=== PATIENT | male | born 1945 | race Caucasian/White ===

== ENCOUNTER 2024-08-24 10:56 | Outpatient (REF) | payer MEDICARE, OTHER, SELFPAY ==
--- OUTSIDE RECORDS SUMMARY | 2024-08-24 13:08 | XMS_ITS | Data Portability ---
Author Organization [place] [facility] [employer] Address [address] [place] [address] Care Team Providers Care Graduate Fellow Name Role Phone MENDEZ SHEEHAN Primary Care Provider [phone] MENDEZ SHEEHAN Referring Provider [phone] DELANO RIGGS Primary Care Provider Assessment No assessment recorded. Plan of Treatment Reminders Order Date Submit Date Provider Last Modified By Organization Details Last Modified Time Details Appointments [facility] Site Visit 2024 11:45A M Wilfredo Reza PA-C Not available Not available Not available Lab None recorded. Referral None recorded. Procedures None recorded. Surgeries None recorded. Imaging None recorded. Medication Orders None recorded. Patient TargetsNo targets recorded. Patient Instructions Encounter Date Encounter Id Patient Instructions Last Modified By Organization Details Last Modified Time 07/26/2024 [id number] Medical Decision Making: {{Chart was reviewed prior to the visit.*}} {{PAP data was downloaded and reviewed* sleep study data was downloaded and reviewed w/ patient.}} {{Discussed the above conditions with the patient and answered all questions.* case was discussed with nurse senior branch manager.}} {{Med reconciliation was performed.*}} [email or web address] Not available 07/26/2024 12:29:52 Reason for Referral None Reported. Results Created Date Observation Date Name Description Value Unit Range Abnormal Flag Note LastModifiedBy Organization Detail LastModifiedTime 01/23/20 21 CPAP compl iance * No observ ation record ed. [email or web address] Not Available 01/22 14:33:34 04/30/20 21 CPAP compl iance * No observ ation record ed. Not Available 04/30 12:16:50 05/15/20 24 05/15/2024 CPAP compl iance * No observ ation record ed. Not Available 2023 15:01:22 07/24/20 24 07/24/2024 CPAP compl iance * No observ ation record ed. Not Available 2023 11:21:36 Result Notes None recorded. Problems Name Problem SNOMED Code Status Onset Date Resolution Date Notes Provider Name and Address Organization Details Recorded Time Obstructive sleep apnea of adult 8648987822764 Active 2022 GOLDEN GONZALEZ PA-C [address], [place], [address] , [facility]. 14:35:41 Obstructive sleep apnea syndrome 82679231 Active 2020 Alee steen [place] [facility] [employer] 11:37:46 Problem Notes None recorded. Procedures Surgical History Date Name Laterality Status Provider Name and Address Organization Details Recorded Time 06/01/2019 Hernia Repair completed Alee Gay [place] [facility] [employer] 01/29/2021 11:38:55 Imaging Results Imaging Date Name Status LastModified by Organiz ation Details LastModified Time 01/22/2021 CPAP compliance * completed [email or web address] Information not available 01/22/2021 14:33:34 04/30/2021 CPAP compliance * completed Information not available 04/30/2021 12:16:50 05/15/2024 CPAP compliance * completed [email or web address] Information not available 05/15/2024 15:01:22 07/24/2024 CPAP compliance * completed Information not available 07/24/2024 11:21:36 Procedure Notes None recorded. Medical Equipment None Reported. Allergies No known drug allergies Medications Name Sig Start Date Stop Date Status Note LastModified by Organization Details LastModified Time metformin 500 mg tablet Take 1 tablet twice a day by oral route for 90 days. 07/26 completed Not Available Not Available Not Available prednisone 10 mg tablet 01/29 completed Not Available Not Available Not Available doxycycline hyclate 100 mg capsule TAKE 1 CAPSULE BY MOUTH TWICE DAILY FOR 10 DAYS 07/26 completed Not Available Not Available Not Available lisinopril 20 mg-hydrochl orothiazide 12.5 mg tablet Take 1 tablet every day by oral route for 90 days. active Not Available Not Available No t Available azithromyci n 250 mg tablet TAKE 2 TABLETS BY MOUTH DAVE THEN TAKE 1 TABLET BY MOUTH X 4 DAYS 07/26 completed Not Available Not Available Not Available meloxicam 15 mg tablet 05/13 completed Not Available Not Available Not Available James Chicas 28 gauge active Not Available Not Available Not Available lisinopril 20 mg tablet 05/04 completed Not Available Not Available Not Available prednisone 20 mg tablet 01/29 completed Not Available Not Available Not Available clobetasol 0.05 % topical cream APPLY TOPICALLY TO THE AFFECTED AREA TWICE DAILY active Not Available Not Available No t Available triamcinolo ne acetonide 0.1 % topical cream APPLY THIN LAYER TOPICALLY TO THE AFFECTED AREA TWICE DAILY 05/13 completed Not Available Not Available Not Available amoxicillin 500 mg tablet TAKE 2 TABLETS BY MOUTH EVERY 8 HOURS FOR 10 DAYS 07/26 completed Not Available Not Available Not Available amoxicillin 875 mg tablet 01/29 completed Not Available Not Available Not Available cephalexin 500 mg capsule 01/29 completed Not Available Not Available Not Available pantoprazol e 40 mg tablet,francine yed release 05/04 completed Not Available Not Available Not Available oseltamivir 75 mg capsule 05/04 completed Not Available Not Available Not Available clotrimazol e-betametha sone 1 %-0.05 % topical cream 05/06 completed Not Available Not Available Not Available prednisone 50 mg tablet TAKE 1 TABLET BY MOUTH EVERY DAY FOR 3 DAYS 05/06 completed Not Available Not Available Not Available lisinopril 5 mg tablet 01/29 completed Not Available Not Available Not Available hydrochloro thiazide 25 mg tablet 05/04 completed Not Available Not Available Not Available epinephrine 0.3 mg/0.3 mL injection, auto-inject or active Not Available Not Available Not Available metformin ER 500 mg tablet,exte nded release 24 hr active Not Available Not Available Not Available rosuvastati n 20 mg tablet Take 1 tablet every day by oral route for 90 days. active Not Available Not Available No t Available metoprolol tartrate 25 mg tablet TAKE 1 TABLET BY MOUTH TWICE DAILY active on hold Not Available Not Available Not Available FreeStyle Lite Strips active Not Available Not Available Not Available Suprep Bowel Prep Kit 17.5 gram-3.13 gram-1.6 gram oral solution 05/06 completed Not Available Not Available Not Available Lancets,Ult ra Thin 26 gauge active Not Available Not Available Not Available Trulicity 0.75 mg/0.5 mL subcutaneou s pen injector active Not Available Not Available Not Available vitamin D3 2,000 unit-folic acid 1 mg tablet Take 1 tablet every day by oral route. active Not Available Not Available No t Available Vitals Date Recorded Body height Body mass index (BMI) Body weight Oxygen saturation Oxygen saturation in Arterial blood by Pulse oximetry Heart rate Systolic blood pressure Diastolic blood pressure Provider Name and Address Organization Details Last Updated DateTime 2 187.96 cm 32.4 kg/m2 131072. 28 g 97 % 97 % 57 /min 124 mm[Hg] 78 mm[Hg] Denise Rodriguez [facility] [employer] 2 09:07:57 Date Recorded Body height Body mass index (BMI) Body weight Provider Name and Address Organization Details Last Updated DateTime 05/13/2023 182.88 cm 34 kg/m2 053752.68 g Afsaneh Nelson [facility] [employer] 05/13/2023 14:14:06 Date Recorded Body height Body mass index (BMI) Body weight Provider Name and Address Organization Details Last Updated DateTime 07/26/2024 182.88 cm 32.8 kg/m2 440432.35 g Agnes Chandler [facility] [employer] [facility] [employer] [facility] 07/26/2024 12:16:10 Date Recorded Body height Body mass index (BMI) Body weight Oxygen saturation Oxygen saturation in Arterial blood by Pulse oximetry Heart rate Systolic blood pressure Diastolic blood pressure Provider Name and Address Organization Details Last Updated DateTime 1 218.44 cm 24.5 kg/m2 040897. 83 g 97 % 97 % 50 /min 120 mm[Hg] 70 mm[Hg] Alee Gay [facility] [employer] 1 11:33:49 Date Recorded Body height Body mass index (BMI) Body weight Oxygen saturation Oxygen saturation in Arterial blood by Pulse oximetry Heart rate Systolic blood pressure Diastolic blood pressure Provider Name and Address Organization Details Last Updated DateTime 1 218.44 cm 24.4 kg/m2 688223. 24 g 95 % 95 % 67 /min 114 mm[Hg] 62 mm[Hg] Denise Rodriguez [facility] [employer] [facility] 09:55:28 Social History Question Answer Notes LastModified by Organizat ion Details LastModified Time Tobacco Smoking Status Former Smoker 5 PPD Denise steen [facility] [employer] [facility] [employer] [facility]. 05/06/2022 09:09:46 What Is Your Level Of Alcohol Consumption? Occasional [email or web address] Information not available 05/06/2022 Do You Or Have You Ever Used E-cigarettes Or Vape? Never Used Electronic Cigarettes Information not available 01/29/2021 Have You Been Exposed To Chemicals Or Toxins? No [email or web address] Information not available 05/06/2022 Have You Been Exposed To Heavy Metals? No [email or web address] Information not available 05/06/2022 DNR/DNI No Information no t available 01/29/2021 Full Code No Information no t available 01/29/2021 DNH No Information no t available 01/29/2021 IV Meds/Fluids No Informatio n not available 01/29/2021 Hospice No Information no t available 01/29/2021 IM Meds No Information no t available 01/29/2021 Snf No Information not available 01/29/2021 Assisted Living No Information not available 01/29/2021 Do You Have Any Pets? Yes Cats [email or web address] Information not available 05/06/2022 Are You Passively Exposed To Smoke? No [email or web address] Information not available 05/06/2022 Do You Or Have You Ever Used Smokeless Tobacco? Never Used Smokeless Tobacco Information not available 01/29/2021 How Much Tobacco Do You Smoke? No Information not available 01/29/2021 Sex: Unknown Functional Status None recorded. Mental Status None recorded. Family History Nothing Reported. Medical History Condition Response Sleep Apnea Y Immunizations Vaccine Type Date Status Note Provider Nam e and Address Organization Details Recorded Time Influenza, adjuvanted, quadrivalent, PF 05/07/2022 completed Arti steen [place] - [facility] 05/07/2022 10:41:25 Past Encounters Encounter ID Performer Location Encounter Start Date Encounter Closed Date Diagnosis/Indication Diagnosis SNOMED-CT Code Diagnosis ICD10 Code Diagnosis Note [id number] Aldo Jung MD MAIN OFFICE - [address] [address] 01/29/2021 11:07:24 01/29/2021 11:51:47 Obstructive sleep apnea syndrome 70869681 G47.33 He is compliant and continues to derive benefit. He is due for a new machine and therefore I will make those arrangemen ts. [id number] Aldo Jung MD MAIN OFFICE - [address] [address] 05/04/2021 09:30:31 05/04/2021 10:27:22 Obstructive sleep apnea syndrome 65068782 G47.33 The pt is compliant and continues to derive benefit from CPAP therapy. I am going to continue CPAP at the present level. [id number] Aldo Jung MD MAIN OFFICE - [address] [address] 05/06/2022 08:53:57 05/06/2022 09:34:04 Obstructive sleep apnea syndrome 12379257 G47.33 The pt is compliant and continues to derive benefit from CPAP therapy. I am going to continue CPAP at the present level. Administra tion of influenza vaccine [id number] Z23 [id number] Aldo Jung MD [facility] [address] [place] [address],[address] [place] [address] 05/13/2023 14:08:23 05/13/2023 16:31:12 Obstructive sleep apnea of adult 2047753172 103 G47.33 The patient {{is* is not}} compliant with Pap therapy.. Compliance report was reviewed with the patient. Compliance issues were discussed. Leak {{is acceptable * is elevated but acceptable is elevated and causing problems}} . The AHI {{is acceptable * is elevated but the pt is asymptomat ic is elevated and the pt is symptomati c}}.The patient {{is* is not}} under control. The patient {{is deriving benefit* i s not deriving full benefit st ruggling w/ PAP rx}}..Mach ine francia e as well as regular cleaning were discussed. Plan: {{continue same management .* arrange for new machine.}} [id number] Wilfredo Reza PA-C [facility] [address] [facility] [place] [address] 07/26/2024 12:15:15 07/26/2024 14:33:37 Obstructive sleep apnea of adult 4250209869 103 G47.33 Patient with sleep apnea. He has been using and benefiting from CPAP therapy. He finds equipment to be beneficial and will continue with nightly use. He will continue to clean and update supplies routinely. As he is doing well, we will plan to continue monitoring his progress annually. If any issues arise throughout the year, he has agreed to notify our office. Of note he did start with upper respirator y symptoms 3 days ago and currently has a cough productive of clear to yellow sputum. He tested negative to COVID-19 and is planning to go to the urgent care this afternoon for further evaluation . I have recommende d increased rest and clear fluid hydration. He will be evaluated at the urgent care. Body mass index 30+ - obesity 222940796 Z68.32 He is aware of the link between obesity and sleep apnea. Health Concerns Section Related Observation LastModified by Organization Detai ls LastModified Time None Recorded Concern Status LastModified by Organization Details LastModified Time None Recorded Advance Directives Directive None Recorded Payers Encounter Date Sequence Insurance Name Policy Number Policy Longo Covered Member ID Longo Member ID Guarantor Name 01/29/2021 2 [employer]PS - FOR LIFE (MEDICARE SUPPLEMENT) Ab Mendez [id number] Ab Mendez 01/29/2021 1 [place] Ab Mendez [id number] Ab Mendez 05/04/2021 2 [employer]PS - FOR LIFE (MEDICARE SUPPLEMENT) Ab Anderson Mendez [id number] Ab Anderson Mendez 05/04/2021 1 [place] [facility] G[place]MENT SERVICES Ab Anderson Mendez [id number] Ab Anderson Mendez 05/06/2022 2 WPS - FOR LIFE (MEDICARE SUPPLEMENT) Ab Anderson Mendez [id number] Ab Anderson Mendez 05/06/2022 1 [place] [facility] Ab Anderson Mendez [id number] Ab Anderson Mendez 05/13/2023 2 [employer]PS - FOR LIFE (MEDICARE SUPPLEMENT) Ab Anderson Mendez [id number] Ab Anderson Mendez 05/13/2023 1 [place] [facility] Ab Anderson Mendez [id number] Ab Anderson Mendez 07/26/2024 2 [employer]PS - FOR LIFE (MEDICARE SUPPLEMENT) Ab Anderson Mendez [id number] Ab Anderson Mendez 07/26/2024 1 [place] [facility] Ab Anderson Mendze [id number] Ab Anderson Mendez Notes Date Note Type Note Provider Name and Address Organization Details Recorded Time 01/29/2021 text/html He remains on CP AP. CPAP is set at 9. He is using the device for 4 hours or more 100% of the time. He averages 6 hours 5 minutes. The AHI is 1.3. Average leak is 8.4. MD [address] [place] [address], [address], [facility] 01/29/2021 12:13:38 05/04/2021 text/html Patient is here for follow-up of obstructive sleep apnea. He continues to use CPAP at 9 cm water pressure. He is using the device for 4 hours more 84% of the time. He averages 5 hours 55 minutes. The AHI is 0.6. The average leak is only 12.3. Feek well. No complaints. Scheduled for a stress test because his heart rate drops into the 50's. Aldo Jung MD [address], [address], [facility] 05/04/2021 10:45:07 05/06/2022 text/html The patient is h ere for follow up of obstructive sleep apnea. He remains on CPAP. I did not have any data or him today. He is no longer wireless. He claims to use it nightly. He feels great. Feels rested when he wakes up in the morning. No issues with the machine. Changes departure regularly. He does not take naps during the day. No excessive daytime sleepiness. No drowsy driving. Aldo Jung MD [address], [place], [address], [facility] [employer] 05/06/2022 09:33:53 05/13/2023 text/html 77 yo male being evaluated via telemedicine for F/U KONG. Per his compliance report, he is using his CPAP for more than 4 hours 93% of nights for an average of 7 hours and 32 minutes at a set pressure of 9. AHI is 0.8 and leak is 7.7. Denies fatigue, excessive daytime sleepiness, snoring, waking up gasping for air. [facility] statementType of telemedicine vist:For this visit was conducted via, patient reports video with audio. For billing discussion, patient reports the patient was informed that this visit would be billed to the patient's insurance company and consented to such..Informed consent:For location of provider and patient, patient reports i have informed the patient of my location as my office. and i have ascertained the location of the patient during this office visit.. For patient was informed of, patient reports the choice of an in-person appointment or remote clinic visit and any relevant privacy considerations and that in the event of an emergency they can be seen in person. For patient choice, patient reports after the above discussion, the patient gave informed consent to a telemedicine visit and wished to proceed..Location of services:For provider, patient reports office. For patient, patient reports home.Attendees:For attendees during visit, patient reports provider and patient.Chart review:For pmh; sh; fh; and pertinent labs, patient reports were reviewed by me personally, both prior to the encounter and again with the patient during the visit. Aldo Jung MD [address], [place], [address], [facility] [employer] 05/17/2023 14:35:43 07/26/2024 text/html [facility] PAP F/URepor mahendra bypatient.Sleep Issues:obstructive sleep apnea. History of present illness:Since last seen, the patient feels rested.; Sleep related symptoms have somewhat improved with PAP use.; The patient denies aerophagia and/or abdominal bloating.; The patient denies problems with sleep initiation.; He denies sleep maintenance issues.; He denies ear discomfort while on PAP therapy.; Denies issues with the mask or machine. Pap questions:no skin irritation; no ear pain; no ear pressure; wakes up rested; no headache;nasal congestion; He reports starting with some upper respiratory symptoms on Tuesday. For the past 3 days he is struggled with a cough productive of clear to yellow sputum. No hemoptysis. He does have some nasal congestion but no other symptoms. He tested negative for COVID. Pressure settings:CPAP 9 CWP Compliance/usage:The patient uses the device on 99 % of nights reviewed; and uses the device for > 4 hrs per night 98 % of the time.; Average usage: 7 hours .; He is using the device for 4 hours or more on at 70% of the nights.; AHI is 0.8.[facility] statementReported bypatient.This visit was conducted viavideo with audio Billing discussion:The patient was informed that this visit would be billed to the patient's insurance company and consented to such. Location of provider and patient:I have ascertained the location of the patient during this office visit. Patient was informed ofthe choice of an in-person appointment or remote clinic visit; any relevant privacy considerations and that in the event of an emergency they can be seen in person Patient choice:after the above discussion, the patient gave informed consent to a telemedicine visit and wished to proceed. Provider:home Patient:home Attendees during visit:provider; patient LITTLE Goins [address], [place], [address], [facility] - [facility] 07/26/2024 12:31:59
--- OUTSIDE RECORDS SUMMARY | 2024-08-24 13:09 | XMS_ITS | Continuity of Care Document ---
Author Name [facility] Organization [facility] Care Team Providers Care Script Coordinator Name Role Phone [facility] Unavailable Unavailable Medications Combined list of outpatient medications from Department of Defense and Veterans Affairs facilities.Medications provided include 1) outpatient medications from the last 15 months, and 2) patient-reported medications. Medication Details Route Status Patient Instructions Prescription Expires Prescription Number Last Dispense Date Ordering Provider Order Date Order Qty Source DOXYCYCLINE HYCLATE (doxycyclin e hyclate), 100 MG, CAPSULE, ORAL, [employer], 500 ea. BOTTLE Active [id number] 2023 20 Pharmac y Data Transac tion Service Facilit y EPINEPHRINE (epinephrin e), 0.3MG/0.3, AUTO INJCT, INJECTION, MYLAN SPECIALTY, 2 ea. SYRINGE Active [id number] 4 2023 2 Pharmac y Data Transac tion Service Facilit y Freestyle 28g lancets [100EA] See Rx Instruct ions, # 200 EA, 2 total refill(s ), Hard Stop Complet ed 07/20/2023 200.0 Ambulat ory Pharmac y FREESTYLE LANCETS (lancets), 28 GAUGE, EACH, MISCELL, HAIR DIABETES, 100 ea. PACKET Active [id number] 4 2023 200 Pharmac y Data Transac tion Service Facilit y freestyle lite (glucose) test strip [50] See Rx Instruct ions, # 200 EA, 2 total refill(s ), Hard Stop Complet ed 07/20/2023 200.0 Ambulat ory Pharmac y FREESTYLE LITE TEST STRIP (blood sugar diagnostic) , STRIP, MISCELL HAIR DIABETES, 50 ea. BOX Active [id number] 4 2023 200 Pharmac y Data Transac tion Service Facilit y hydrochloro thiazide-li sinopril 12.5 mg-20 mg tab = 1 tab(s), Oral, Daily, # 90 EA, 0 total refill(s ), Hard Stop Oral (given by mouth) Complet ed 07/20/2023 90.0 Ambulat ory Pharmac y LISINOPRIL- HCTZ (LISINOPRIL /HYDROCHLOR OTHIAZIDE), 20-12.5MG, TABLET, ORAL, LUPIN PHARMACEU, 500 ea. BOTTLE Cancele d [id number] : 2023 0 Pharmac y Data Transac tion Service Facilit y LISINOPRIL- HYDROCHLORO THIAZIDE (lisinopril /hydrochlor othiazide), 20-12.5 MG, TABLET, ORAL, EXELAN PHARMACE, 1000 ea. BOTTLE Active [id number] 4 2023 180 Pharmac y Data Transac tion Service Facilit y metFORMIN 500 mg tablet See Rx Instruct ions, Oral, # 180 EA, 0 total refill(s ), Hard Stop Oral (given by mouth) Complet ed 10/06/2023 180.0 Ambulat ory Pharmac y METFORMIN HCL ER (metformin HCl), 500 MG, TAB ER 24H, ORAL, AVKARE, 90 ea. BOTTLE Active [id number] 4 2023 180 Pharmac y Data Transac tion Service Facilit y one touch ultra soft lancet See Rx Instruct ions, # 200 EA, 2 total refill(s ), Hard Stop Discont inued 10/06/2022 200.0 Ambulat ory Pharmac y rosuvastati n 20 mg tablet 20 mg, Oral, Daily, # 90 EA, 0 total refill(s ), Hard Stop Oral (given by mouth) Complet ed 07/20/2023 90.0 Ambulat ory Pharmac y ROSUVASTATI N CALCIUM (rosuvastat in calcium), 20 MG, TABLET, ORAL, [employer] 90 ea. BOTTLE Active [id number] 4 2023 90 Pharmac y Data Transac tion Service Facilit y ROSUVASTATI N CALCIUM (rosuvastat in calcium), 20 MG, TABLET, ORAL, [employer] 90 ea. BOTTLE Cancele d [id number] : 2023 0 Pharmac y Data Transac tion Service Facilit y ROSUVASTATI N CALCIUM (rosuvastat in calcium), 20 MG, TABLET, ORAL, [employer] 90 ea. BOTTLE Active [id number] 4 2023 90 Pharmac y Data Transac tion Service Facilit y TRULICITY (DULAGLUTID E), 0.75MG/0.5, PEN INJCTR, SUB-Q, [employer] 0.5 ml SYRINGE Active [id number] 4 2023 6 Pharmac y Data Transac tion Service Facilit y TRULICITY (DULAGLUTID E), 0.75MG/0.5, PEN INJCTR, SUB-Q, [employer] 0.5 ml SYRINGE Cancele d [id number] : 2023 0 Pharmac y Data Transac tion Service Facilit y TRULICITY (DULAGLUTID E), 0.75MG/0.5, PEN INJCTR, SUB-Q, [employer] 0.5 ml SYRINGE Active [id number] 4 2023 6 Pharmac y Data Transac tion Service Facilit y TRULICITY (DULAGLUTID E), 0.75MG/0.5, PEN INJCTR, SUB-Q, [employer] 0.5 ml SYRINGE Active [id number] 3 2022 6 Pharmac y Data Transac tion Service Facilit y Immunizations Combined list of available immunizations from the Department of Defense and Veterans Affairs facilities. Immunization Series Date Given Administered By Site Reaction Lot Number CVX Code Drug Appliance Technician Status Comments Source zoster vaccine live 2012 121 [employer] complet ed zoster vaccine live 10/11/12 Given Ambulat ory Pharmac y zoster vaccine live 2012 121 [employer] complet ed zoster vaccine live 10/11/12 Given Ambulat ory Pharmac y zoster vaccine, live 1 2012 Unknown, Provider 121 [employer]ck (MSD) complet ed zoster vaccine, live DoD Vital Signs Combined list of inpatient and outpatient Vital Signs from Department of Defense and Veterans Affairs, ranging from 12 months to all on record, depending upon the facility. Vital Sign Value Date Comments Source No data available for this section Ambulatory Pharmacy Procedures Combined list of: 1) Procedures from Department of Veterans Affairs facilities going back up to thelast 18 months, not all [place] non-surgical procedures are included; 2) All procedures from the Department of Defense facilities. Procedure Procedure Type Code Date Perfomer Comments Sourc e No data available for this section Ambulatory P harmacy Social History Combined list of available smoking, tobacco, and other social history from Department of Defense and Veterans Affairs facilities. Social History Type Response Date Comment Sourc e This section is an empty social history section. DoD Assessment and Plan Combined list of future care activities from Department of Defense and Veterans Affairs facilities (e.g., assessment and plan notes, appointments, orders, and referrals). Additional future care activities may be listed in the Plan of Care section. Result Assessment and Plan Date Source Assessment and Plan No data available for this section 08/24/2024 Ambulatory Pharmacy Functional Status Combined list of recent functional and cognitive assessments recorded at [facility] of Defense and [facility] [place] Functional [place] Measurement (FIM) Scale: 1 = Total Assistance (Subject = 0% +), 2 = Maximal Assistance (Subject = 25% +), 3 = Moderate Assistance (Subject = 50% +), 4 = Minimal Assistance (Subject = 75% +), 5 = Supervision, 6 = Modified [place] (Device), 7 = Complete [place] (Timely, Safely). Assessment Date/Time Source Assessment Type Assessment Skill Assessment Score Assessment Details No data available for this section
--- OUTSIDE RECORDS SUMMARY | 2024-08-24 13:09 | XMS_ITS | Continuity of Care Document ---
Author Organization [place] - [facility] [place]([place]) Address [address] [place] [address] Care Team Providers Care Bridge Painter Helper Name Role Phone MENDEZ SHEEHAN Primary Care Provider MENDEZ SHEEHAN Referring Provider DELANO RIGGS Primary Care Provider Assessment No [...] By Organization Details Last Modified Time 07/26/2024 [id number] Medical Decision Making: {{Chart was reviewed prior to the visit.*}} {{PAP data was downloaded and reviewed* sleep study data was downloaded and reviewed w/ patient.}} {{Discussed the above conditions with the patient and answered all questions.* case was discussed with nurse manager development.}} {{Med reconciliation was performed.*}} [email or web address] Not available 07/26/2024 12:29:52 Reason for Referral None Reported. Results Created Date Observation Date Name Description Value Unit Range Abnormal Flag Note LastModifiedBy Organization Detail LastModifiedTime 07/24/2007/24/2024 CPAP compl iance * No observ ation record ed. [email or web address] Not Available 2023 11:21:36 Result Notes None recorded. Problems Name Problem SNOMED Code Status Onset Date Resolution Date Notes Provider Name and Address Organization Details Recorded Time Obstructive sleep apnea of adult 8172643702025 Active 2022 GOLDEN GONZALEZ PA-C [address] , [place], [address] , [facility] - [facility] [employer]. 14:35:41 Obstructive sleep apnea syndrome 79366383 Active 2020 Alee Gay [facility] [employer]. 11:37:46 Problem Notes None recorded. Procedures Surgical History Date Name Laterality Status Provider Name and Address Organization Details Recorded Time 06/01/2019 Hernia Repair completed Alee Gay [place] - [employer]. 01/29/2021 11:38:55 Imaging Results None recorded. Procedure Notes None recorded. Medical Equipment None [...] completed Not Available Not Available Not Available FreeStyle Lancets 28 gauge active Not Available Not Available [...] Updated DateTime 07/26/2024 182.88 cm 32.8 kg/m2 721170.35 g Agnes Chandler [place] - [facility] 07/26/2024 12:16:10 Social History Question Answer Notes LastModified by Organizat ion Details LastModified Time Tobacco Smoking Status Former Smoker 5 PPD Denise Rodriguez null, [place] - [facility] [employer] 05/06/2022 09:09:46 What Is Your Level Of Alcohol Consumption? Occasional [email or web address] Information not available 05/06/2022 Do You Or Have You Ever Used E-cigarettes Or Vape? Never Used Electronic Cigarettes Information not available 01/29/2021 Have You Been Exposed To Chemicals Or Toxins? No [email or web address] Information not available 05/06/2022 Have You Been Exposed To Heavy Metals? No [email or web address] Information not available 05/06/2022 DNR/DNI No Information no t available 01/29/2021 Full Code No Information no t available 01/29/2021 DNH No Information no t available 01/29/2021 IV Meds/Fluids No Informatio n not available 01/29/2021 Hospice No Information no t available 01/29/2021 IM Meds No Information no t available 01/29/2021 Long Term No Information not available 01/29/2021 Assisted Living No Information not available 01/29/2021 Do You Have Any Pets? Yes Cats [email or web address] Information not available 05/06/2022 Are You Passively Exposed To Smoke? No [email or web address] Information not available 05/06/2022 Do You Or [...] completed Arti steen [place] - [facility] [employer] 05/07/2022 10:41:25 Past Encounters Encounter ID Performer Location Encounter Start Date Encounter Closed Date Diagnosis/Indication Diagnosis SNOMED-CT Code Diagnosis ICD10 Code Diagnosis Note [id number] Wilfredo Reza PA-C [facility] [address] [place] [address] 07/26/2024 12:15:15 07/26/2024 14:33:37 Obstructive sleep apnea of adult 9002947665 103 G47.33 Patient with sleep apnea. He [...] care. Body mass index 30+ - obesity 042532678 Z68.32 He is aware of the link between obesity and sleep apnea. Health Concerns Section Related Observation LastModified by Organization Detai ls LastModified Time None Recorded Concern Status LastModified by Organization Details LastModified Time None Recorded Payers Encounter Date Sequence Insurance Name Policy Number Policy Longo Covered Member ID Longo Member ID Guarantor Name 07/26/2024 2 [employer] - FOR LIFE (MEDICARE SUPPLEMENT) Ab Mendez [id number] Ab Mendez 07/26/2024 1 MEDICARE B-[place]: [facility] [employer] Ab Mendez [id number] Ab Mendez Notes Date Note Type Note Provider Name and Address Organization Details Recorded Time 07/26/2024 text/html C[facility] PAP F/URepor mahendra bypatient.Sleep Issues:obstructive sleep apnea. [...] at 70% of the nights.; AHI is 0.8.[facility] telemed[facility] statementReported bypatient.This visit was conducted viavideo [...] proceed. Provider:home Patient:home Attendees during visit:provider; patient Wilfredo Reza PA-C [address] [place] [address] N, [place], [address], [facility] - [facility] 07/26/2024 12:31:59
[2024-08-24 14:39] LABS: MANUAL DIFF FLAG NO
[2024-08-24 14:41] LABS: Basophils Percent Auto 0.8 % (0-2); Eosinophils Absolute Auto 0.1 X10*3/uL (0.0-0.4); Eosinophils Percent Auto 2.8 % (0-4); Hematocrit 37.1 % (42.0-52.0); Hemoglobin 12.1 g/dl (14.0-18.0); Imm Gran Abs Auto 0.01 X10*3/uL (0.00-0.03); Imm Gran Pct Auto 0.2 % (0.0-0.4); Lymphocytes Absolute Auto 1.1 X10*3/uL (1.2-4.9); Lymphocytes Percent Auto 22.6 % (20-40); Mean Corpuscular HGB Conc 32.6 g/dl (31.0-36.0); Mean Corpuscular Volume 95.1 fL (80.0-98.0); Mean Platelet Volume 8.8 fL (9.4-12.4); Monocytes Absolute Auto 0.7 X10*3/uL (0.1-1.2); Monocytes Percent Auto 13.4 % (2-11); Neutrophils Percent Auto 60.2 % (45-73); Platelet Count 148 X10*3/uL (160-400); Red Cell Distribution Width 12.9 % (11.0-16.0)
[2024-08-24 15:30] LABS: Prostate Specific Antigen 5.74 ng/mL (<0.05-4.0)
[2024-08-24 15:37] LABS: Folate 18.6 ng/mL (> or = 4.0); TSH reflex Free T4 0.95 uIU/mL (0.32-4.0); Vitamin B12 495 pg/mL (200-900)
[2024-08-24 15:49] LABS: Creatinine Urine 45.12 mg/dL; Microalbumin Urine < 5.0 mg/L
[2024-08-24 15:51] LABS: Anion Gap 12 (12-20)
[2024-08-24 15:56] LABS: Alanine Aminotransferase 20 U/L (0-40); Albumin Level 4.3 g/dL (3.5-5.0); Alkaline Phosphatase 42 U/L (39-117); Aspartate Amino Transferase 27 U/L (5-37); Bilirubin Total 0.6 mg/dL (0.0-1.0); Blood Urea Nitrogen 13 mg/dL (9-16); Calcium 9.1 mg/dL (8.4-10.2); Carbon Dioxide 29 mmol/L (22-29); Chloride 104 mmol/L (96-108); Estimated Glomerular Filt Rate > 60; Glucose Random 92 mg/dL (60-115); Iron 98 mcg/dL (45-160); Percent Iron Saturation 36 % (15-50); Sodium 141 mmol/L (135-145); Total Iron Binding Capacity 270 mcg/dL (228-428); Total Protein 7.5 g/dL (6.5-8.0); Unsaturated Iron Binding 172 ug/dL
== END 2024-08-24 10:57 | disposition home or self-care (01) ==
LOC: HO.WFDLDS 10:56
PROVIDERS: Visit Provider Physician Assistant
DX: D64.9 Anemia, unspecified (principal); E11.9 Type 2 diabetes mellitus without complications; I10 Essential (primary) hypertension; K46.9 Unspecified abdominal hernia without obstruction or gangrene; R10.9 Unspecified abdominal pain; Z12.5 Encounter for screening for malignant neoplasm of prostate
CPT/HCPCS: 36415; 80053; 82043; 82570; 82607; 82746; 83540; 84153; 84443; 85025